=== PATIENT | male | born 1975 | race Caucasian/White ===

== ENCOUNTER → 2016-10-17 | Outpatient (CLI) | payer OTHER ==
[~2016-10-17] MED LIST: ATORVASTATIN CA10 MG PO; BACTRIM DS1 TAB PO; CEPHALEXIN500 MG PO; CLINDAMYCIN HC300 MG PO; IBUPROFEN600 MG PO; LISINOPRIL/HYDR1 TA1 PO; OXYCODONE/ACETA1 TA1 PO; ZESTRIL2.5 MG PO
--- NOTE | 2016-10-17 12:24 | DIAGNOSTIC IMAGING REPORT ---
PROCEDURE: MR BRAIN WITHOUT CONTRAST INDICATION: MIGRAINE GIMENEZ, facial numbness, left eye blurring, history of seizure. TECHNIQUE: Multiplanar multisequence MRI imaging of the brain without contrast. COMPARISON: None. FINDINGS: The midline structures are normally formed. The ventricular system is normal in size. Basal cisterns are patent. Flow voids in the major intracranial vessels are normal. Signal throughout the el and white matter is normal. No restricted diffusion to suggest acute ischemia. No evidence of acute or chronic intraparenchymal or extra-axial hemorrhage. No mass, mass effect, or midline shift. Normal signal in the visible bones. Complete opacification of the left maxillary sinus with high T2 signal material. The other sinuses are normally aerated. Visible extracranial soft tissues including the orbits are normal. IMPRESSION: 1. Normal MRI of the brain. 2. Left maxillary sinus disease.
== END ==
LOC: MRI SRH 10-14 14:00
DX: G43.909 Migraine, unspecified, not intractable, without status migrainosus (principal)